=== PATIENT | female | born 1990 | race American Indian/Alaskan Native ===

== ENCOUNTER 2019-05-09 10:49 | Emergency (ER) | payer SELFPAY ==
[2019-05-09 10:59] VITALS: BP 132/87
--- NOTE | 2019-05-09 12:14 | Emergency Department Report ---
- General Chief Complaint: Urogenital-Female Stated Complaint: CHEST PAIN/RT BREAST PAIN Time Seen by Provider: 05/09/19 12:00 Source: patient Mode of arrival: Ambulatory Limitations: No Limitations - History of Present Illness Initial Comments: Chief complaint "knot on my breast" John is as a [id number] female with history of breast cysts. As an adolescent she required surgery at [facility]. She has a cyst on her right breast. She has bilateral breast tenderness and swelling. Denies fever. Denies trauma. Denies injury. -: Gradual, week(s) (1) - Related Data Previous Rx's Medication Instructions Recorded Last Taken Type Sulfamethoxazole/Trimethoprim 1 each PO BID 7 Days #14 tablet 05/09/19 Unknown Rx [Bactrim DS TAB] cephALEXin [Keflex] 500 mg PO Q6HR 7 Days #28 capsule 05/09/19 Unknown Rx Allergies Allergy/AdvReac Type Severity Reaction Status Date / Time No Known Allergies Allergy Unverified 05/09/19 10:54 ED Review of Systems ROS: Stated complaint: CHEST PAIN/RT BREAST PAIN Other details as noted in HPI Constitutional: denies: fever, malaise Cardiovascular: chest pain Gastrointestinal: denies: abdominal pain, nausea, vomiting ED Past Medical Hx - Past Medical History Previous Medical History?: No - Surgical History Past Surgical History?: Yes Additional Surgical History: cyst removal R breast 2008 - Social History Smoking Status: Never Smoker Substance Use Type: None - Medications Home Medications: Home Medications Medication Instructions Recorded Confirmed Last Taken Type Sulfamethoxazole/Trimethoprim 1 each PO BID 7 Days #14 tablet 05/09/19 Unknown Rx [Bactrim DS TAB] cephALEXin [Keflex] 500 mg PO Q6HR 7 Days #28 capsule 05/09/19 Unknown Rx ED Physical Exam - General Limitations: No Limitations General appearance: alert, in no apparent distress - Head Head exam: Present: atraumatic, normocephalic - Cardiovascular Cardiovascular Exam: Present: other - Neurological Exam Neurological exam: Present: alert, oriented X3 - Skin Skin exam: Present: other (redness 2 cm abscess inferior medial areola) ED Course Vital Signs 05/09/19 10:54 Temperature 97.8 F Pulse Rate 103 H Respiratory 18 Rate Blood Pressure 132/87 O2 Sat by Pulse 100 Oximetry ED Medical Decision Making - Medical Decision Making small breast abscess prescribed Keflex and Bactrim referred to breast surgeon Critical care attestation.: If time is entered above; I have spent that time in minutes in the direct care of this critically ill patient, excluding procedure time. ED Disposition Clinical Impression: Breast abscess Disposition: - TO HOME OR SELFCARE Is pt being admited?: No Does the pt Need Aspirin: No Condition: Stable Instructions: Breast Abscess Drainage (ED) Prescriptions: Sulfamethoxazole/Trimethoprim [Bactrim DS TAB] 1 each PO BID 7 Days #14 tablet cephALEXin [Keflex] 500 mg PO Q6HR 7 Days #28 capsule Referrals: SAL CAMPO MD [Staff Physician] - 3-5 Days
== END 2019-05-09 12:29 | disposition home or self-care (01) ==
LOC: ED 10:49
DX: N61.1 Abscess of the breast and nipple (principal)
CPT/HCPCS: 99282